=== PATIENT | female | born 1990 | race African-American/Black ===

== ENCOUNTER 2022-08-16 16:50 | Emergency (ER) | payer MEDICAID ==
[~2022-08-16] VITALS: Ht 162.6 cm; Wt 65.8 kg
[2022-08-16 17:02] VITALS: BP 134/71
--- NOTE | 2022-08-16 17:50 | NUR ---
PT C/O COUGH, SORE THROAT X1 WEEK.
--- NOTE | 2022-08-16 18:05 | NUR ---
CHAPERONED PELVIC EXAM WITH PA
--- NOTE | 2022-08-16 18:16 | NUR ---
SWABBED AND SENT TO LAB
[2022-08-16] MEDS ORDERED: ROB PO (20:11)
[2022-08-16] MEDS ORDERED: ALBU0.0912 IH (20:11)
--- NOTE | 2022-08-16 20:40 | NUR ---
Patient discharged with v/s stable. Written and verbal after care instructions given and explained. Patient alert, oriented and verbalized understanding of instructions. Ambulatory with steady gait. All questions addressed prior to discharge. ID band removed. Patient advised to follow up with PMD. Rx of PROVENTIL HFA ROBITUSSIN given.
== END 2022-08-16 20:40 | disposition home or self-care (01) ==
LOC: MED 16:50
DX: J06.9 Acute upper respiratory infection, unspecified (principal); Z20.822 Contact with and (suspected) exposure to COVID-19; Z90.49 Acquired absence of other specified parts of digestive tract; Z79.899 Other long term (current) drug therapy
CPT/HCPCS: 71045; 81002; 81025; 87070; 87205; 87210; 87426; 87491; 87804; 99284; Q0092